=== PATIENT | female | born 1950 | race Caucasian/White ===

== ENCOUNTER → 2019-09-17 | Emergency (ER) | payer SELFPAY ==
--- NOTE | 2019-09-17 13:50 | NUR ---
ED Nurse Note: Called patient. Patient not found in ER.
--- NOTE | 2019-09-17 13:51 | NUR ---
ED Nurse Note: Patient left ER without being triaged.
== END | disposition left against medical advice (07) ==
LOC: EMR 13:34
DX: Z53.21 Procedure and treatment not carried out due to patient leaving prior to being seen by health care provider (principal)